=== PATIENT | male | born 1960 | race Caucasian/White ===

== ENCOUNTER 2018-12-26 19:40 | Emergency (ER) | payer BC ==
[~2018-12-26] VITALS: Ht 188 cm; Wt 122.5 kg
[~2018-12-26 19:40] MED LIST: ATIVAN2 MG PO; COZAAR50 MG PO; LAC30L PO; LOPRESSOR50 MG PO; MAC100 PO
[2018-12-26 20:16] VITALS: Ht 188 cm; Wt 122.5 kg
[2018-12-26 21:38] LABS: BASOPHIL % 0.3 % (0-2); PLATELET COUNT 99 x10^3mcL (130-400); RED CELL DISTRIBUTION WIDTH 15.2 % (11.5-14.5)
[2018-12-26 21:45] LABS: CALCIUM 8.7 mg/dL (8.5-10.1); CARBON DIOXIDE 19.8 mmol/L (21-32); CHLORIDE SERUM 102 mmol/L (98-107); GFR1 > 60 mL/min; GLUCOSE SERUM 126 mg/dL (74-106); SODIUM SERUM 135 mmol/L (136-145)
[2018-12-26 21:50] LABS: ALBUMIN 3.4 g/dL (3.4-5.0); ALKALINE PHOSPHATASE 82 U/L (46-116); ALT/SGPT 27 U/L (16-63); AST/SGOT 42 U/L (15-37); BILIRUBIN TOTAL 3.5 mg/dL (0.20-1.00); TOTAL PROTEIN, SERUM 6.7 g/dL (6.4-8.2)
[2018-12-26 22:39] LABS: ERYTHROCYTE SED RATE 15 mm/hr (0-20)
[2018-12-26 23:38] VITALS: BP 153/100
== END 2018-12-26 23:38 | disposition home or self-care (01) ==
LOC: ED 19:40
PROVIDERS: Emergency Medicine
DX: M25.551 Pain in right hip (principal); G89.29 Other chronic pain; I10 Essential (primary) hypertension; K74.60 Unspecified cirrhosis of liver
CPT/HCPCS: J2270; J7030

== ENCOUNTER 2018-12-31 13:17 | Inpatient (IN) | payer BC ==
[~2018-12-31] VITALS: Ht 188 cm; Wt 127.5 kg
[2018-12-31 14:25] LABS: PLATELET COUNT 200 x10^3mcL (130-400)
[2018-12-31 14:28] LABS: RED CELL DISTRIBUTION WIDTH 14.8 % (11.5-14.5)
[2018-12-31 14:33] LABS: CALCIUM 8.1 mg/dL (8.5-10.1); CHLORIDE SERUM 94 mmol/L (98-107); GFR1 > 60 mL/min; GLUCOSE SERUM 100 mg/dL (74-106); POTASSIUM SERUM 3.3 mmol/L (3.5-5.1); SODIUM SERUM 130 mmol/L (136-145)
[2018-12-31 14:36] LABS: BAND NEUTROPHIL 2 % (0-10); METAMYELOCTE 1 % (0-2); MONOCYTE 13 % (0-7); SEGMENTED NEUTROPHILS 72 % (37-75)
[2018-12-31 14:38] LABS: rbc morphology (normal/abnorm) ABNORMAL (NORMAL)
[2018-12-31 14:39] LABS: ALKALINE PHOSPHATASE 132 U/L (46-116); ALT/SGPT 54 U/L (16-63); AST/SGOT 98 U/L (15-37); BILIRUBIN TOTAL 4.4 mg/dL (0.20-1.00); LIPASE 366 IU/L (73-393); PLATELET MORPHOLOGY PLATELETS NORMAL; TOTAL PROTEIN, SERUM 6.2 g/dL (6.4-8.2)
[2018-12-31 14:42] LABS: ALBUMIN 2.7 g/dL (3.4-5.0)
[2018-12-31 15:26] LABS: UA SPECIFIC GRAVITY <=1.005 (1.005-1.035); microscopic required? YES; urine erythrocyte 2+ (NEGATIVE)
[2018-12-31 15:37] LABS: AMPHETAMINE QUAL UR NONE DETECTED (See below)
[2018-12-31] MEDS ORDERED: CYMBALTA20 M1 PO (15:43)
[2018-12-31] MEDS ORDERED: NORCO 10-325 T1 EACH PO (15:43)
[2018-12-31] MEDS ORDERED: BACLOFEN20 MG PO (15:44)
[2018-12-31 16:54] LABS: IRON 72 ug/dL (65-170); TOTAL IRON BINDING CAPACITY 256 ug/dL (250-450)
[2018-12-31] MEDS ORDERED: TOPROL XL25 MG PO (16:54)
[2018-12-31 17:00] LABS: MAGNESIUM 1.8 mg/dL (1.8-2.4); PHOSPHOROUS 3.2 mg/dL (2.5-4.9)
[2018-12-31 17:01] VITALS: BP 122/66
[2018-12-31 17:01] LABS: CHOLESTEROL/HDL RATIO 18.5
[2018-12-31 17:46] VITALS: BP 139/67
[2018-12-31 20:18] VITALS: BP 134/61
[2019-01-01 04:54] VITALS: BP 147/70
[2019-01-01 06:35] LABS: CARBON DIOXIDE 27.4 mmol/L (21-32); CHLORIDE SERUM 101 mmol/L (98-107); CREATININE SERUM 0.9 mg/dL (0.7-1.3); GFR1 > 60 mL/min; GLUCOSE SERUM 107 mg/dL (74-106); PHOSPHOROUS 4.2 mg/dL (2.5-4.9); POTASSIUM SERUM 3.6 mmol/L (3.5-5.1); SODIUM SERUM 134 mmol/L (136-145)
[2019-01-01 06:51] LABS: PLATELET COUNT 176 x10^3mcL (130-400)
[2019-01-01 07:29] LABS: RED CELL DISTRIBUTION WIDTH 14.8 % (11.5-14.5)
[2019-01-01 09:49] VITALS: BP 142/75
[2019-01-01 10:51] LABS: BILIRUBIN DIRECT 2.12 mg/dL (0.0-0.2); BILIRUBIN TOTAL 3.44 mg/dL (0.20-1.00)
[2019-01-01 11:05] LABS: ALBUMIN 2.3 g/dL (3.4-5.0); TOTAL PROTEIN, SERUM 5.5 g/dL (6.4-8.2)
[2019-01-01 13:14] VITALS: BP 133/71
[2019-01-01 14:12] LABS: BAND NEUTROPHIL 0 % (0-10); BASOPHIL 0 % (0-2); MONOCYTE 29 % (0-7); SEGMENTED NEUTROPHILS 69 % (37-75)
[2019-01-01 14:13] LABS: PLATELET MORPHOLOGY PLATELETS DECREASED; rbc morphology (normal/abnorm) ABNORMAL (NORMAL)
[2019-01-01 17:02] VITALS: BP 141/72
[2019-01-01 21:46] VITALS: BP 111/57
[2019-01-02 06:11] VITALS: BP 130/64
[2019-01-02 06:14] LABS: PLATELET COUNT 156 x10^3mcL (130-400)
[2019-01-02 06:27] LABS: CALCIUM 7.6 mg/dL (8.5-10.1); CARBON DIOXIDE 24.8 mmol/L (21-32); CHLORIDE SERUM 104 mmol/L (98-107); CREATININE SERUM 0.7 mg/dL (0.7-1.3); GFR1 > 60 mL/min; GLUCOSE SERUM 98 mg/dL (74-106); PHOSPHOROUS 3.5 mg/dL (2.5-4.9); POTASSIUM SERUM 3.6 mmol/L (3.5-5.1); SODIUM SERUM 138 mmol/L (136-145)
[2019-01-02 06:36] LABS: RED CELL DISTRIBUTION WIDTH 15.8 % (11.5-14.5)
[2019-01-02 09:45] LABS: ATYPICAL LYMPH 1 %; BAND NEUTROPHIL 3 % (0-10); BASOPHIL 0 % (0-2); MONOCYTE 15 % (0-7); SEGMENTED NEUTROPHILS 72 % (37-75)
[2019-01-02 09:46] LABS: PLATELET MORPHOLOGY PLATELETS DECREASED; rbc morphology (normal/abnorm) ABNORMAL (NORMAL)
[2019-01-02 09:57] VITALS: BP 109/49; BP 141/76
[2019-01-02 13:43] VITALS: BP 136/63
[2019-01-02 16:15] VITALS: BP 139/54
[2019-01-02 22:05] VITALS: BP 144/64
[2019-01-03 05:56] VITALS: BP 148/68
[2019-01-03 06:26] LABS: CALCIUM 7.9 mg/dL (8.5-10.1); CARBON DIOXIDE 26.4 mmol/L (21-32); CHLORIDE SERUM 105 mmol/L (98-107); CREATININE SERUM 0.7 mg/dL (0.7-1.3); GFR1 > 60 mL/min; GLUCOSE SERUM 96 mg/dL (74-106); PHOSPHOROUS 3.4 mg/dL (2.5-4.9); POTASSIUM SERUM 3.8 mmol/L (3.5-5.1); SODIUM SERUM 139 mmol/L (136-145)
[2019-01-03 06:59] LABS: BASOPHIL % 0 % (0-2); PLATELET COUNT 173 x10^3mcL (130-400)
[2019-01-03 07:15] VITALS: BP 141/81
[2019-01-03 09:46] VITALS: BP 141/81
[2019-01-03 13:19] VITALS: BP 144/57
[2019-01-03 15:30] VITALS: BP 124/67
[2019-01-03 21:02] VITALS: BP 143/75
[2019-01-04 06:03] VITALS: BP 144/63
[2019-01-04 06:58] LABS: BASOPHIL % 0.2 % (0-2); PLATELET COUNT 169 x10^3mcL (130-400)
[2019-01-04 07:09] LABS: RED CELL DISTRIBUTION WIDTH 15.6 % (11.5-14.5)
[2019-01-04 07:24] LABS: CARBON DIOXIDE 26.8 mmol/L (21-32); CHLORIDE SERUM 104 mmol/L (98-107); CREATININE SERUM 0.8 mg/dL (0.7-1.3); GFR1 > 60 mL/min; GLUCOSE SERUM 80 mg/dL (74-106); PHOSPHOROUS 3.4 mg/dL (2.5-4.9); POTASSIUM SERUM 3.7 mmol/L (3.5-5.1); SODIUM SERUM 138 mmol/L (136-145)
[2019-01-04 07:30] VITALS: BP 135/71
[2019-01-04 10:18] VITALS: BP 145/65
[2019-01-04 18:54] VITALS: BP 128/57
[2019-01-04 21:19] VITALS: BP 142/68
[2019-01-05 05:19] VITALS: BP 135/69
[2019-01-05 09:05] VITALS: BP 121/65
[2019-01-06 05:12] VITALS: BP 127/51
[2019-01-06 07:09] LABS: CALCIUM 8.1 mg/dL (8.5-10.1); CARBON DIOXIDE 27.9 mmol/L (21-32); CHLORIDE SERUM 104 mmol/L (98-107); CREATININE SERUM 0.7 mg/dL (0.7-1.3); GFR1 > 60 mL/min; GLUCOSE SERUM 109 mg/dL (74-106); MAGNESIUM 1.7 mg/dL (1.8-2.4); POTASSIUM SERUM 3.7 mmol/L (3.5-5.1); SODIUM SERUM 138 mmol/L (136-145)
[2019-01-06 07:14] LABS: BASOPHIL % 0.3 % (0-2); PLATELET COUNT 185 x10^3mcL (130-400); RED CELL DISTRIBUTION WIDTH 15.6 % (11.5-14.5)
[2019-01-06 08:22] VITALS: BP 129/74
[2019-01-06 12:19] VITALS: BP 138/65
[2019-01-06 16:50] VITALS: BP 132/89
[2019-01-06 20:48] VITALS: BP 122/68
[2019-01-06 20:52] VITALS: BP 134/80
[2019-01-07 05:44] VITALS: BP 113/52
[2019-01-07 07:25] LABS: CALCIUM 8.3 mg/dL (8.5-10.1); CARBON DIOXIDE 29.4 mmol/L (21-32); CHLORIDE SERUM 104 mmol/L (98-107); CREATININE SERUM 0.7 mg/dL (0.7-1.3); GFR1 > 60 mL/min; GLUCOSE SERUM 97 mg/dL (74-106); MAGNESIUM 1.8 mg/dL (1.8-2.4); PHOSPHOROUS 3.9 mg/dL (2.5-4.9); POTASSIUM SERUM 4.1 mmol/L (3.5-5.1); SODIUM SERUM 139 mmol/L (136-145)
[2019-01-07 07:26] LABS: BASOPHIL % 0.4 % (0-2); PLATELET COUNT 198 x10^3mcL (130-400); RED CELL DISTRIBUTION WIDTH 15.8 % (11.5-14.5)
[2019-01-07 10:55] VITALS: BP 123/54
[2019-01-07 17:58] VITALS: BP 123/54
[2019-01-07 18:17] VITALS: BP 126/63
[2019-01-07 22:32] VITALS: BP 107/54
[2019-01-08 04:56] VITALS: BP 127/57
[2019-01-08 06:53] LABS: BASOPHIL % 0.8 % (0-2); PLATELET COUNT 228 x10^3mcL (130-400)
[2019-01-08 07:17] LABS: CALCIUM 8.5 mg/dL (8.5-10.1); CARBON DIOXIDE 26.6 mmol/L (21-32); CHLORIDE SERUM 104 mmol/L (98-107); CREATININE SERUM 0.8 mg/dL (0.7-1.3); GFR1 > 60 mL/min; GLUCOSE SERUM 121 mg/dL (74-106); MAGNESIUM 1.8 mg/dL (1.8-2.4); PHOSPHOROUS 4.1 mg/dL (2.5-4.9); POTASSIUM SERUM 4.3 mmol/L (3.5-5.1); SODIUM SERUM 138 mmol/L (136-145)
[2019-01-08 07:18] LABS: RED CELL DISTRIBUTION WIDTH 15.9 % (11.5-14.5)
[2019-01-08 09:06] VITALS: BP 129/54
[2019-01-08 16:53] VITALS: BP 133/63
[2019-01-08 19:20] VITALS: BP 146/82
[2019-01-09 05:43] VITALS: BP 123/71
[2019-01-09 08:10] LABS: CARBON DIOXIDE 26.5 mmol/L (21-32); CHLORIDE SERUM 101 mmol/L (98-107); CREATININE SERUM 0.8 mg/dL (0.7-1.3); GFR1 > 60 mL/min; GLUCOSE SERUM 102 mg/dL (74-106); MAGNESIUM 1.8 mg/dL (1.8-2.4); PHOSPHOROUS 4.4 mg/dL (2.5-4.9); POTASSIUM SERUM 4.3 mmol/L (3.5-5.1); SODIUM SERUM 135 mmol/L (136-145)
[2019-01-09 09:02] VITALS: BP 126/69
[2019-01-09 11:16] LABS: PLATELET COUNT 276 x10^3mcL (130-400)
[2019-01-09 11:17] LABS: BASOPHIL % 0.4 % (0-2)
[2019-01-09 17:09] VITALS: BP 113/62
[2019-01-09 21:41] VITALS: BP 123/78
[2019-01-10 05:21] VITALS: BP 123/71
[2019-01-10 06:41] LABS: CALCIUM 8.9 mg/dL (8.5-10.1); CARBON DIOXIDE 29.5 mmol/L (21-32); CHLORIDE SERUM 102 mmol/L (98-107); CREATININE SERUM 0.8 mg/dL (0.7-1.3); GFR1 > 60 mL/min; GLUCOSE SERUM 86 mg/dL (74-106); POTASSIUM SERUM 4.6 mmol/L (3.5-5.1); SODIUM SERUM 138 mmol/L (136-145)
[2019-01-10 10:24] VITALS: BP 136/59
[2019-01-10 12:03] LABS: PLATELET COUNT 272 x10^3mcL (130-400); RED CELL DISTRIBUTION WIDTH 15.2 % (11.5-14.5)
[2019-01-10 12:05] LABS: ATYPICAL LYMPH 2 %; BAND NEUTROPHIL 0 % (0-10); BASOPHIL 0 % (0-2); MONOCYTE 15 % (0-7); PLATELET MORPHOLOGY PLATELETS NORMAL; SEGMENTED NEUTROPHILS 65 % (37-75); rbc morphology (normal/abnorm) ABNORMAL (NORMAL)
[2019-01-10 15:35] VITALS: BP 143/74
[2019-01-10 16:31] VITALS: BP 125/65
[2019-01-11 05:59] VITALS: BP 135/61
[2019-01-11 08:53] VITALS: BP 145/74
[2019-01-11 08:57] LABS: BASOPHIL % 1.2 % (0-2); PLATELET COUNT 293 x10^3mcL (130-400)
[2019-01-11 09:24] LABS: CARBON DIOXIDE 29.2 mmol/L (21-32); CHLORIDE SERUM 99 mmol/L (98-107); CREATININE SERUM 0.8 mg/dL (0.7-1.3); GFR1 > 60 mL/min; GLUCOSE SERUM 92 mg/dL (74-106); POTASSIUM SERUM 4.8 mmol/L (3.5-5.1); SODIUM SERUM 134 mmol/L (136-145)
[2019-01-11 17:54] VITALS: BP 116/53
[2019-01-11 20:13] VITALS: BP 148/55
[2019-01-12 04:40] VITALS: BP 116/88
[2019-01-12 06:50] LABS: CARBON DIOXIDE 26.3 mmol/L (21-32); CHLORIDE SERUM 100 mmol/L (98-107); CREATININE SERUM 0.8 mg/dL (0.7-1.3); GFR1 > 60 mL/min; GLUCOSE SERUM 93 mg/dL (74-106); POTASSIUM SERUM 4.2 mmol/L (3.5-5.1); SODIUM SERUM 137 mmol/L (136-145)
[2019-01-12 07:26] VITALS: BP 139/81
[2019-01-12 12:59] VITALS: Ht 188 cm; Wt 127.5 kg
[2019-01-12 15:26] LABS: BASOPHIL % 1.3 % (0-2); PLATELET COUNT 330 x10^3mcL (130-400)
[2019-01-12 15:27] LABS: RED CELL DISTRIBUTION WIDTH 15.3 % (11.5-14.5)
[2019-01-12 15:33] VITALS: BP 112/62
[2019-01-12 20:04] VITALS: BP 112/62
== END 2019-01-12 21:38 | disposition short-term general hospital (02) | DRG 871 ==
LOC: ED 13:17 → DU 15:55 → MU 01-03 12:15
PROVIDERS: Emergency Medicine; Internal Medicine; ADMIT General Practice
PROC: 009U3ZX Drainage of Spinal Canal, Percutaneous Approach, Diagnostic (ICD-10-PCS; principal; 2019-01-12)
PROC: B01B1ZZ Fluoroscopy of Spinal Cord using Low Osmolar Contrast (ICD-10-PCS; 2019-01-12)
DX: A41.9 Sepsis, unspecified organism (principal); J18.9 Pneumonia, unspecified organism; G93.41 Metabolic encephalopathy; N39.0 Urinary tract infection, site not specified; E87.1 Hypo-osmolality and hyponatremia; I10 Essential (primary) hypertension; R65.20 Severe sepsis without septic shock; K74.60 Unspecified cirrhosis of liver; Z66 Do not resuscitate; E87.6 Hypokalemia; E83.51 Hypocalcemia; M16.11 Unilateral primary osteoarthritis, right hip; Z90.89 Acquired absence of other organs; Z83.3 Family history of diabetes mellitus; Z82.49 Family history of ischemic heart disease and other diseases of the circulatory system; Z68.34 Body mass index [BMI] 34.0-34.9, adult; Z79.899 Other long term (current) drug therapy; M19.90 Unspecified osteoarthritis, unspecified site; B96.1 Klebsiella pneumoniae [K. pneumoniae] as the cause of diseases classified elsewhere
CPT/HCPCS: 62272; 82962; 83880; 87804; 97110-GP; 97116-GP; 97530-GP; G0480; J0696; J2185; J3475; J7030; J7620; Q0092; Q0163